=== PATIENT | male | born 1980 | race Caucasian/White ===

== ENCOUNTER 2017-12-26 08:57 | Emergency (ER) | payer OTHER ==
[2017-12-26 09:36] VITALS: BP 118/78
[2017-12-26] MEDS ORDERED: DOXYcycline CAP(*) 100 MG PO ONE (10:10)
--- NOTE | 2017-12-26 10:19 | UC ---
Skin Complaint HPI - HPI Summary HPI Summary: Patient presents with an unremarkable past medical history. He presents today s/ p removal of a tick, which he states must have been present for 24-48 hours. He states he removed it, and it was engorged with blood. He denies any fever, chills, rashes or joint pain. - History of Current Complaint Chief Complaint: UCSkin Time Seen by Provider: 12/26/17 10:03 Stated Complaint: TICK BITE Hx Obtained From: Patient Onset/Duration: Sudden Onset Skin Exposure Onset/Duration: Hours Ago Onset Severity: Mild Current Severity: Mild Pain Intensity: 0 Location: Discrete Aggravating Factor(s): Nothing Alleviating Factor(s): Nothing Associated Signs & Symptoms: Positive: Negative - Allergy/Home Medications Allergies/Adverse Reactions: Allergies Allergy/AdvReac Type Severity Reaction Status Date / Time No Known Allergies Allergy Verified 12/26/17 09:32 Home Medications: Home Medications NK [No Home Medications Reported] 12/26/17 [History Confirmed 12/26/17] Review of Systems Constitutional: Negative Skin: Other - tick bite lower abdomen Eyes: Negative ENT: Negative Respiratory: Negative Cardiovascular: Negative Gastrointestinal: Negative Genitourinary: Negative Motor: Negative Neurovascular: Negative Musculoskeletal: Negative Neurological: Negative Psychological: Negative Is Patient Immunocompromised?: No All Other Systems Reviewed And Are Negative: Yes PMH/Surg Hx/FS Hx/Imm Hx Previously Healthy: Yes - Surgical History Surgical History: Yes Surgery Procedure, Year, and Place: 2000- testicle surgery; lump removal; benign - Family History Known Family History: Positive: None - Social History Occupation: Employed Full-time Lives: Alone Alcohol Use: Daily Alcohol Amount: 2-3 drinks daily Substance Use Type: None Smoking Status (MU): Never Smoked Tobacco Physical Exam Triage Information Reviewed: Yes Appearance: Well-Appearing Vital Signs: Initial Vital Signs Temp 98.9 F 12/26/17 09:33 Pulse 59 12/26/17 09:33 Resp 16 12/26/17 09:33 BP 118/78 12/26/17 09:33 Pulse Ox 100 12/26/17 09:33 Eye Exam: Normal ENT Exam: Normal Dental Exam: Normal Neck exam: Normal Neck: Positive: 1 Respiratory Exam: Normal Cardiovascular Exam: Normal Abdominal Exam: Normal Musculoskeletal Exam: Normal Neurological Exam: Normal Psychological Exam: Normal Skin Exam: Normal Skin: Positive: Other - left side lower abdomen, 0.25 dried/scabbed area. No surrounding erythma migrans. Course/Dx - Course Course Of Treatment: Patient was treated prophylactically with doxycycline 200 mg x one dose in the department, I told him to follow up in one month with his PCP to have a lymes titer drawn. - Differential Diagnoses - Skin Complaint Differential Diagnoses: Other - tick bite - Diagnoses Provider Diagnoses: tick bite. prophylaxis Discharge - Sign-Out/Discharge Documenting (check all that apply): Discharge/Admit/Transfer - Discharge Plan Condition: Stable Disposition: HOME Patient Education Materials: Tick Bite (ED) Referrals: Andrey Martinez MD [Primary Care Provider] - Additional Instructions: Follow up with your doctor in one month to have a Lymes test. - Billing Disposition and Condition Condition: STABLE Disposition: HOME
== END 2017-12-26 10:20 | disposition home or self-care (01) ==
LOC: UCEAST 08:57
DX: S30.861A Insect bite (nonvenomous) of abdominal wall, initial encounter (principal); W57.XXXA Bitten or stung by nonvenomous insect and other nonvenomous arthropods, initial encounter; Y93.9 Activity, unspecified; Y92.9 Unspecified place or not applicable
CPT/HCPCS: 99212; A9270-GY; G0463